=== PATIENT | female | born 1945 | race Caucasian/White ===

== ENCOUNTER 2019-02-16 05:55 | Day surgery (SDC) | payer OTHER ==
[~2019-02-16 05:55] MED LIST: NORVASC5 MG PO; SYNTHROID100 MCG PO; SYNTHROID50 MCG PO
[2019-02-16] MEDS ORDERED: PERCOCET 5-3251 EACH PO (08:44)
== END 2019-02-16 13:30 | disposition home or self-care (01) ==
LOC: CIR.AMB 05:55
DX: K62.82 Dysplasia of anus (principal); A63.0 Anogenital (venereal) warts

== ENCOUNTER 2021-04-24 06:40 | Day surgery (SDC) | payer OTHER ==
[~2021-04-24 06:40] MED LIST changes: +CRESTOR20 MG PO; +PERCOCET 5-3251 EACH PO
[2021-04-24] MEDS ORDERED: COLACE100 MG PO (10:25)
[2021-04-24] MEDS ORDERED: ULTRACET PO (10:25)
== END 2021-04-24 16:30 | disposition home or self-care (01) ==
LOC: CIR.AMB 06:40
PROVIDERS: ATTEND Surgery
DX: D12.9 Benign neoplasm of anus and anal canal (principal); K64.8 Other hemorrhoids; Z20.822 Contact with and (suspected) exposure to COVID-19